=== PATIENT | female | born 2000 | race Caucasian/White ===

== ENCOUNTER 2024-10-25 18:06 | Emergency (ER) | payer OTHER, SELFPAY ==
--- NOTE | 2024-10-25 18:09 | ED.ANIMALBIT ---
HPI - Animal Bite General Chief Complaint: Animal Bite Stated Complaint: Cat/Dog Bite Time Seen by Provider: 10/25/24 18:09 Source: patient Mode of arrival: ambulatory Limitations: no limitations History of Present Illness HPI narrative: Patient is a 24 year old female who presents to the clinic with complaints of cat/ dog bites and scratches to bilateral hands. She states yesterday she was trying to break up a fight between a cat and dog. She is unaware of which animal bit her. She states that she has swelling, redness, and pain to her bilateral hands. She applied Dermabond to the bite on her left wrist. Denies any numbness, tingling, nausea, vomiting, body aches, or fevers. Related Data Allergies Allergy/AdvReac Type Severity Reaction Status Date / Time No Known Allergies Allergy Verified 10/25/24 18:15 Review of Systems Review of Systems: CONSTITUTIONAL: Denies body aches, fever, chills, or sweats. EYES: Denies visual changes, redness, or discharge. ENT: Denies rhinorrhea, congestion CARDIOVASCULAR: Denies chest pain, palpitations, or edema. RESPIRATORY: Denies cough or dyspnea. GASTROINTESTINAL: Denies abdominal pain, nausea, vomiting, or diarrhea. SKIN: ?Reports multiple animal scratches to bilateral hands and a bite to her left wrist. MUSCULOSKELETAL: Denies back pain, joint pain, or myalgia. NEUROLOGIC: Denies headache, numbness, tingling, or weakness. All systems reviewed & are unremarkable except as noted in HPI and below PMFSH Comments At time of signature, I have reviewed and agree with nursing past medical, surgical, social and family history unless otherwise noted. Please see nursing chart for further information. There is no relevant family history pertinent to the presenting complaint. Exam Narrative: GENERAL: Well-appearing HEAD: Normocephalic, atraumatic. EYES: ?conjunctivae clear, and EOMI. ENT: Mucous membranes moist. Oropharynx without edema, erythema or lesions. NECK: Supple. No lymphadenopathy CHEST: Clear to auscultation. HEART: Regular rate and rhythm. SKIN: Warm, dry. ?Multiple superficial scratches noted to bilateral hands. Edema and Erythema noted primarily to left hand. 0.5 cm bite noted to left wrist where Dermabond was placed. Left middle finger has the most edema with decreased range of motion. NEURO: ?Alert and oriented x3.? Course Course Level of Care: Express Care Visit Vital Signs Vital signs: Vital Signs Temperature 97.9 F 10/25/24 18:17 Pulse Rate 103 H 10/25/24 18:17 Respiratory Rate 18 10/25/24 18:17 Blood Pressure 129/81 10/25/24 18:17 Pulse Oximetry 100 10/25/24 18:17 Oxygen Delivery Room Air 10/25/24 18:17 Temperature 97.9 F 10/25/24 18:17 Pulse Rate 103 H 10/25/24 18:17 Respiratory Rate 18 10/25/24 18:17 Blood Pressure 129/81 10/25/24 18:17 Pulse Oximetry 100 10/25/24 18:17 Oxygen Delivery Room Air 10/25/24 18:17 Reviewed MDM - Animal Bite MDM Narrative Medical decision making narrative: Discussed physical exam findings. Antibiotic prescribed for animal bites. Advised supportive measures and signs/symptoms to go to the ER. Pt is appropriate for outpatient treatment and follow up. Differential Diagnosis Differential diagnosis: Likely bite by animal, cat bite and dog bite Critical Care Time Critical Care Time Critical Care Time: No Discharge Plan Discharge Clinical Impression: Bite by animal Patient Disposition: Home Condition: Stable Instructions: Antibiotic Form, Animal Bite (ED) Additional Instructions: Take antibiotic as prescribed. Clean with soap and water only; Avoid using alcohol and peroxide. Keep covered during the day. Use Bactroban antibiotic daily. Elevate the affected area if possible Alternate Tylenol and ibuprofen for pain. Apply moist heat 3-4 times daily for 10-15 minutes. Please schedule a follow up visit with your personal physician for further evaluation and treatment within 3-5days OR if your symptoms persist, change or worsen significantly before you can contact your personal physician then please, without delay, go to the emergency department for further evaluation. If you experience any worsening redness, swelling, streaking (red lines), fever or chills please go to the ER Patient Language: Indonesian Prescriptions: New amoxicillin-pot clavulanate 875-125 mg tablet 1 tablet PO Q12H 10 Days Qty: 20 0RF Follow-up/Referrals: UNKNOWN,DOCTOR [Non-Staff] - Stand Alone Forms: Work/School Release IP Time of Disposition: 18:24
[2024-10-25 18:17] VITALS: BP 129/81; PULSE 103; RESP 18; TEMP 36.6; O2SAT 100
== END 2024-10-25 18:33 | disposition home or self-care (01) ==
DX: S60.512A Abrasion of left hand, initial encounter (principal); S60.511A Abrasion of right hand, initial encounter; S61.552A Open bite of left wrist, initial encounter; W64.XXXA Exposure to other animate mechanical forces, initial encounter
CPT/HCPCS: 99203; G0463